=== PATIENT | male | born 1965 | race Caucasian/White ===

== ENCOUNTER 2017-02-07 10:59 | Emergency (ER) | payer OTHER ==
[2017-02-07 11:17] VITALS: O2SAT 97
[2017-02-07] MEDS ORDERED: IBUPROFEN 800 MG TAB PO ONE (12:12)
--- NOTE | 2017-02-07 12:13 | EDPHY ---
H & P Time Seen by Provider: 02/07/17 11:05 HPI/ROS: 51-year-old male presents complaining of injury at work where his left leg slipped, causing him to do a split like motion now with left lower quadrant left pelvic and left scrotal pain. No numbness or tingling in leg, no loss of bowel or bladder control no back pain Review of systems General no fever no chills no weakness HEENT no eye pain no eye discharge. No eye redness, no sore throat Respiratory no cough, no shortness of breath Cardiac no chest pain, no peripheral edema GI no abdominal pain, no diarrhea, no constipation, no nausea, no vomiting no flank pain, no hematuria, no dysuria Musculoskeletal positive myalgias, no joint pain Heme no easy bruising, no easy bleeding Endo no polyuria, no polydipsia Skin no rashes, no pruritus Neuro no syncope, no dizziness, no headaches Psych is no suicidal ideation, no homicidal ideation Past Medical/Surgical History: Noncontributory Social History: Denies alcohol or drug use Smoking Status: Former smoker Physical Exam: 51-year-old male alert and oriented no acute distress nontoxic appearance afebrile Atraumatic normocephalic Neck supple Lungs clear to auscultation bilaterally Heart regular rate and rhythm Abdomen slightly obese normoactive bowel sounds soft nontender positive tenderness to palpation at left suprapubic and left inguinal crease Positive tenderness to palpation of left testicle, no swelling no ecchymosis Mild tenderness to palpation of left inner thigh Pain elicited abduction of left hip, left thigh Gait intact Constitutional: Initial Vital Signs Temperature (C) 36.2 C 02/07/17 11:02 Heart Rate 84 02/07/17 11:02 Respiratory Rate 16 02/07/17 11:02 Blood Pressure 154/89 H 02/07/17 11:02 O2 Sat (%) 97 02/07/17 11:02 O2 Delivery Mode Room Air Allergies/Adverse Reactions: No Known Allergies Allergy (Unverified 02/07/17 11:23) Home Medications: Medication Instructions Recorded Ibuprofen 600 mg PO Q8 PRN #30 tablet 02/07/17 Tramadol HCl 50 mg PO Q8 PRN #21 tablet 02/07/17 Medical Decision Making - Diagnostics Imaging Results: Imaging Impressions Hip X-Ray 02/07/17 12:10 Impression: No acute osseous findings. Testicular Ultrasound 02/07/17 12:11 Impression: Mild bilateral hydroceles. A couple small epididymal cysts at the head of the right epididymis. Otherwise, unremarkable. Results called and discussed with Liv Fox M.D. on February 07, 2017 at 1354 hours. ED Course/Re-evaluation: Medical decision making and ER course Patient seen and evaluated for left groin and left scrotal left thigh pain following an injury at work Differential diagnosis considered Groin strain, left hip fracture, left inguinal hernia, left femoral hernia Psoas strain Ultrasound of scrotum Negative for bleeding, negative for torsion positive small hydroceles bilaterally No evidence of hernia Left hip x-ray Normal, no fracture Pelvis Normal no fracture Urinalysis No hematuria Impression Left groin strain Plan Ibuprofen, tramadol Rest ice elevate Follow-up with workraúl's comp - Data Points Laboratory Results: 02/07/17 12:50 Urine Color YELLOW Urine Appearance CLEAR Urine pH 5.5 (5.0-7.5) Ur Specific [place] 1.020 (1.002-1.030) Urine Protein NEGATIVE (NEGATIVE) Urine Ketones NEGATIVE (NEGATIVE) Urine Blood NEGATIVE (NEGATIVE) Urine Nitrate NEGATIVE (NEGATIVE) Urine Bilirubin NEGATIVE (NEGATIVE) Urine Urobilinogen 0.2 EU EU (0.2-1.0) Ur Leukocyte Esterase NEGATIVE (NEGATIVE) Urine Glucose NEGATIVE (NEGATIVE) Medications Given: Discontinued Medications Ibuprofen (Motrin) 800 mg PO EDNOW ONE Stop: 02/07/17 12:13 Last Admin: 02/07/17 12:45 Dose: 800 mg Departure - Departure Disposition: Home, Routine, Self-Care Clinical Impression: Strain of left inguinal muscle Condition: Good Instructions: Groin Strain (ED) Referrals: NONE *PRIMARY CARE P,. [Primary Care Provider] - As per Instructions Stand Alone Forms: Work Excuse Prescriptions: Ibuprofen 600 mg PO Q8 PRN #30 tablet PRN Reason: Pain, Moderate Tramadol HCl 50 mg PO Q8 PRN #21 tablet PRN Reason: Pain, Severe Print Language: [place]
[2017-02-07] MEDS ORDERED: IBUPROFEN 600 MG TAB PO ONE (12:44)
[2017-02-07] MEDS ORDERED: IBUPROFEN 200 MG TAB PO ONE (12:44)
[2017-02-07 13:00] LABS: COLOR YELLOW; LEUKOCYTE ESTERASE,URINE NEGATIVE (NEGATIVE); NITRITE,URINE NEGATIVE (NEGATIVE); PH,URINE 5.5 (5.0-7.5)
[2017-02-07 14:32] VITALS: BP 144/69; PULSE 72; RESP 18; TEMP 97.7
== END 2017-02-07 14:31 | disposition home or self-care (01) ==
LOC: CED 10:59
DX: S39.011A Strain of muscle, fascia and tendon of abdomen, initial encounter (principal); Z87.891 Personal history of nicotine dependence; W18.40XA Slipping, tripping and stumbling without falling, unspecified, initial encounter; Y92.69 Other specified industrial and construction area as the place of occurrence of the external cause; Y99.0 Civilian activity done for income or pay; Y93.89 Activity, other specified
CPT/HCPCS: 73502-PO; 76870-PO; 81003-PO